=== PATIENT | male | born 1960 | race Two or more races ===

== ENCOUNTER 2019-04-13 01:51 | Emergency (ER) | payer BC ==
[2019-04-13] VITALS (7 sets, daily range): BP systolic 122–147; BP diastolic 75–88
[~2019-04-13] VITALS: Ht 157.5 cm; Wt 56.7 kg
[2019-04-13] MEDS ORDERED: ZOCOR20 MG ORAL (02:15)
--- NOTE | 2019-04-13 02:23 | NUR ---
ED Nurse Note: PT WALKED IN C/O LAC ON POSTERIOR SCALP, PT REPORTS HE FELL WALKING DOWN STAIRS AND HIT HIS HEAD, NOTED LAC WITH DRIED BLOOD, WILL CONT MONITOR. DENIES LOC. PT Aa&OX4, GCS=15, CMS INTACT, DENIES TAKING ANTICOAGULANT MEDS.
--- NOTE | 2019-04-13 02:25 | Emergency Room Report ---
History of Present Illness General Chief Complaint: Multiple Trauma/Fall Source: Patient Present Illness HPI Patient presents with a head injury. He fell on stairs yesterday about 6 or 7 pm. He is not sure what time it was. He denies loss of consciousness. He does not remember falling. There is a cut in the back of his head. It hurts when he is coughing. There was little bleeding when this happened. By putting direct pressure the bleeding was stopped. It's been greater than 10 years since his last tetanus shot. He denies taking blood thinners at this time. The patient rates the pain 4/10. He has taken no medication tonight. He only came in after a friend suggested. No nausea, vomiting. No neck pain. He scraped his right forearm. Pain initially rated 4/10 and throbbing and somewhat sharp in the occiput. Borderline DM. Some polies. He denies any chest pain or palpitations. He denies prior irregular heartbeats. Never with syncope. Last checked by MD 3 months ago. Some anxiety. Scheduled to go to daughter's graduation [facility] in 1 week. 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 Nursing Documentation: PMH: Agreed; PSxH: Agreed Nursing Documentation-PMH Hx Cardiac Problems: Yes - elevated cholesterol Hx Neurological Problems: Yes - arthritis Review of Systems All Other Systems: negative except mentioned in HPI Physical Exam Vital Signs Date Time Temp Pulse Resp B/P (MAP) Pulse Ox O2 Delivery O2 Flow Rate FiO2 04/13/19 02:07 98.1 75 14 144/88 (106) 98 Room Air Sp02 EP Interpretation: reviewed, normal General Appearance: well appearing, no apparent distress, other - GCS 14, not know what happened Head: normocephalic, atraumatic Eyes: left eye other - Pterygium; bilateral eye PERRL, bilateral eye EOMI ENT: hearing grossly normal, normal voice Neck: full range of motion, supple, no bony tend Respiratory: no respiratory distress, speaking full sentences Cardiovascular #1: no edema, other - missed beats Cardiovascular #2: 2+ radial (R) Gastrointestinal: normal inspection, normal bowel sounds, non tender Musculoskeletal: digits/nails normal, gait/station normal, normal range of motion, other - Slight tenderness right forearm Neurologic: alert, oriented x3 - some confusion over what 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 Reason for critical care: Subarachnoid bleed and transfer to higher level care, syncope with arrhythmia Possible complications: hypotension, hypertension, MT, shock, arrhythmias, metabolic acidosis, end organ damage, respiratory failure. Interventions: Laceration repair, multiple calls to [facility], repeat neurologic evaluations Course: Patient presented after fall with head injury. He was uncertain of how he fell. Based on evaluation CT reveals subarachnoid blood. The laceration was repaired. Repeated neurologic exams were done. After the CT scan [facility] was contacted for transfer to higher level of care. His EKG showed frequent PVCs. This required cardiac monitoring of the patient. With treatment the ectopy seemed to improve. Repeat neurologic exam unchanged. I elected not to start the patient on Keppra at this time. Blood pressure was always controlled. Consultations: nursing staff, EMS, [facility] Performed by: Dr. Mayes Tolerated well condition = serious Laceration/Wound Repair Laceration/Wound Repair : Consent: Verbal Wound Location: head Wound's Depth, Shape: into muscle Wound Length (cm): 5 Wound Explored: clean Irrigated w/ Saline (ccs): 30 Betadine Prep?: Yes Anesthesia: Lidocaine w/ Epi Volume Anesthetic (ccs): 20 Wound Debrided: None Wound Repaired With: julián Layer Closure?: No Sterile Dressing Applied?: No - Bacitracin Patient Tolerated: Well Complications: None Medical Decision Making Diagnostic Impression: Primary Impression: Subarachnoid bleed Additional Impressions: Syncope Qualified Codes: R55 - Syncope and collapse Head injury Qualified Codes: S09.90XA - Unspecified injury of head, initial encounter Scalp laceration Qualified Codes: S01.01XA - Laceration without foreign body of scalp, initial encounter Frequent unifocal PVCs ER Course Presents with a scalp laceration after a fall. Differential includes scalp laceration, head bleed, head contusion amongst others. CT the head is indicated , the patient needs tetanus, julián. When pressed, the patient does not remember falling. Consider arrhythmia, AMI, syncope amongst others. Evaluation with EKG, CXR and labs. Needs observation tele. Labs unremarkable. EKG no injury but frequent PVCs. CXR unremarkable. Labs unremarkable. Called by radiology - suspicion of subarachnoid blood. Calling Cedjanna. 4:15 Present to RN Raisa 4:47. Cedars presented to Dr. Weston - Trauma who accepts patient. 5:05. Neuro unchanged. Transfer Cedjanna Weston. Laboratory Tests Test 04/13/19 03:12 04/13/19 03:40 White Blood Count 8.5 K/UL (4.8-10.8) Red Blood Count 5.00 M/UL (4.70-6.10) Hemoglobin 15.1 G/DL (14.2-18.0) Hematocrit 43.5 % (42.0-52.0) Mean Corpuscular Volume 87 FL (80-99) Mean Corpuscular Hemoglobin 30.2 PG (27.0-31.0) Mean Corpuscular Hemoglobin Concent 34.7 G/DL (32.0-36.0) Red Cell Distribution Width 11.4 % (11.6-14.8) L Platelet Count 198 K/UL (150-450) Mean Platelet Volume 7.8 FL (6.5-10.1) Neutrophils (%) (Auto) 53.5 % (45.0-75.0) Lymphocytes (%) (Auto) 34.9 % (20.0-45.0) Monocytes (%) (Auto) 6.3 % (1.0-10.0) Eosinophils (%) (Auto) 4.3 % (0.0-3.0) H Basophils (%) (Auto) 1.0 % (0.0-2.0) Prothrombin Time 10.0 SEC (9.30-11.50) Prothrombin Time INR 0.9 (0.9-1.1) PTT 30 SEC (23-33) Sodium Level 137 MMOL/L (136-145) Potassium Level 3.7 MMOL/L (3.5-5.1) Chloride Level 104 MMOL/L (98-107) Carbon Dioxide Level 22 MMOL/L (21-32) Anion Gap 12 mmol/L (5-15) Blood Urea Nitrogen 22 mg/dL (7-18) H Creatinine 1.0 MG/DL (0.55-1.30) Estimate Glomerular Filtration Rate > 60 mL/min (>60) Glucose Level 142 MG/DL (74-106) H Calcium Level 8.5 MG/DL (8.5-10.1) Total Bilirubin 1.1 MG/DL (0.2-1.0) H Direct Bilirubin 0.2 MG/DL (0.0-0.3) Aspartate Amino Transferase (AST) 28 U/L (15-37) Alanine Aminotransferase (ALT) 31 U/L (12-78) Alkaline Phosphatase 94 U/L (46-116) Total Creatine Kinase 345 U/L (26-308) H Creatine Kinase MB 1.8 NG/ML (0.0-3.6) Creatine Kinase MB Relative Index 0.5 Troponin I 0.000 ng/mL (0.000-0.056) Pro-B-Type Natriuretic Peptide 22 pg/mL (0-125) Total Protein 7.1 G/DL (6.4-8.2) Albumin 4.3 G/DL (3.4-5.0) Globulin 2.8 g/dL Albumin/Globulin Ratio 1.5 (1.0-2.7) Thyroid Stimulating Hormone (TSH) 1.924 uiU/mL (0.358-3.740) Serum Alcohol < 3 mg/dL Urine Opiates Screen Negative (NEGATIVE) Urine Barbiturates Screen Negative (NEGATIVE) Phencyclidine (PCP) Screen Negative (NEGATIVE) Urine Amphetamines Screen Negative (NEGATIVE) Urine Benzodiazepines Screen Negative (NEGATIVE) Urine Cocaine Screen Negative (NEGATIVE) Urine Marijuana (THC) Screen Negative (NEGATIVE) EKG Diagnostic Results Rate: normal Rhythm: other - frequent PVCs ST Segments: no acute changes - no injury Rhythm Strip Diag. Results EP Interpretation: yes Rhythm: NSR, other - frequent PVCs rate 75 Chest X-Ray Diagnostic Results Chest X-Ray Diagnostic Results : Chest X-Ray Ordered: Yes # of Views/Limited/Complete: 1 View Indication: Other EP Interpretation: Yes Interpretation: no consolidation, no effusion, no pneumothorax Impression: No acute disease Electronically Signed by: Electronically signed by Lm Mayes MD CT/MRI/US Diagnostic Results CT/MRI/US Diagnostic Results : Imaging Test Ordered: head Impression IMPRESSION: Subtle findings suspicious for a small amount of acute subarachnoid hemorrhage in the posterior left frontal lobe near the vertex. Last Vital Signs Date Time Temp Pulse Resp B/P (MAP) Pulse Ox O2 Delivery O2 Flow Rate FiO2 04/13/19 07:39 73 16 122/77 99 Room Air 04/13/19 06:09 98.1 Status: improved Disposition: XFER [facility] Condition: Serious Lm Mayes MD Apr 13, 2019 02:25
[2019-04-13] MEDS ORDERED: Bacitracin Oint UD TOPIC ONE (02:30)
[2019-04-13] MEDS ORDERED: Tetanus/Diptheria/Pertussis IM ONE (02:30)
[2019-04-13] MEDS ORDERED: Lidocaine 1% 10mg/ml/Epi 0.005mg/ml 30ml vial INJ ONE (02:30)
--- NOTE | 2019-04-13 03:00 | NUR ---
ED Nurse Note: PT STATED TO MILLIE PT HAD SYNCOPAL EPISODE, PT STATES I DIDN'T WANT TO SAY IT BECAUSE I DIDN'T THINK IT WAS IMPORTANT. SISI DONE BY MILLIE, INTACT, BACITRACIN APPLIED PER ORDER.
--- NOTE | 2019-04-13 03:15 | NUR ---
HAND-OFF: Report given to LILIAN MCNEIL AND [facility]. 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 BLOOD SPECIMEN SENT TO LAB.
--- NOTE | 2019-04-13 03:20 | NUR ---
ED Nurse Note: Got patient from the FT, placed on monitor. AAO x4, VSS at this time, skin is dry, warm to touch.
[2019-04-13 03:28] LABS: EOSINOPHILS % (AUTO) 4.3 % (0.0-3.0); HEMATOCRIT 43.5 % (42.0-52.0); HEMOGLOBIN 15.1 G/DL (14.2-18.0); LYMPHOCYTES % (AUTO) 34.9 % (20.0-45.0); MEAN CORPUSCULAR VOLUME 87 FL (80-99); MONOCYTES % (AUTO) 6.3 % (1.0-10.0); NEUTROPHILS % (AUTO) 53.5 % (45.0-75.0); PLATELET COUNT 198 K/UL (150-450); RED CELL DISTRIBUTION WIDTH 11.4 % (11.6-14.8); WHITE BLOOD COUNT 8.5 K/UL (4.8-10.8)
[2019-04-13 03:31] LABS: ANION GAP 12 mmol/L (5-15); BLOOD UREA NITROGEN 22 mg/dL (7-18); CALCIUM 8.5 MG/DL (8.5-10.1); CARBON DIOXIDE 22 MMOL/L (21-32); CHLORIDE 104 MMOL/L (98-107); POTASSIUM 3.7 MMOL/L (3.5-5.1); SODIUM 137 MMOL/L (136-145)
[2019-04-13 03:32] LABS: INR 0.9 (0.9-1.1)
[2019-04-13 03:46] LABS: ALANINE AMINOTRANSFERASE 31 U/L (12-78); ALBUMIN 4.3 G/DL (3.4-5.0); ALBUMIN/GLOBULIN RATIO 1.5 (1.0-2.7); ALKALINE PHOSPHATASE 94 U/L (46-116); ASPARTATE AMINO TRANSFERASE 28 U/L (15-37); BILIRUBIN,TOTAL 1.1 MG/DL (0.2-1.0); CKMB 1.8 NG/ML (0.0-3.6); CREATINE KINASE 345 U/L (26-308)
[2019-04-13 03:52] LABS: BILIRUBIN,DIRECT 0.2 MG/DL (0.0-0.3)
--- NOTE | 2019-04-13 04:03 | Diagnostic Imaging Report ---
EXAM: XR Chest, 1 View CLINICAL HISTORY: SYNCOPE TECHNIQUE: Frontal view of the chest. COMPARISON: head CT same day FINDINGS: Lungs: Mild hypoventilatory changes at the lung bases. Pleural space: Unremarkable. No pneumothorax. Heart: Unremarkable. No cardiomegaly. Mediastinum: Unremarkable. Bones/joints: Unremarkable. Vasculature: Aortic calcification. IMPRESSION: No acute findings.
--- NOTE | 2019-04-13 04:10 | Diagnostic Imaging Report ---
EXAM: CT Head Without Intravenous Contrast CLINICAL HISTORY: TRAUMA TECHNIQUE: Axial computed tomography images of the head/brain without intravenous contrast. CTDI is 70.53 mGy and DLP is 1319 mGy-cm. One or more of the following dose reduction techniques were used: automated exposure control, adjustment of the mA and/or kV according to patient size, use of iterative reconstruction technique. COMPARISON: none FINDINGS: Brain: Curvilinear density within the sulci of the posterior left frontal lobe best demonstrated on coronal image 28 of series 5 is suspicious for a trace amount of acute subarachnoid hemorrhage. Otherwise no acute intracranial hemorrhage is appreciated. No significant white matter disease. Ventricles: Unremarkable. No ventriculomegaly. Bones/joints: No skull fracture is evident. Soft tissues: There is a stapled laceration in the left occipital region. Sinuses: Unremarkable as visualized. No acute sinusitis. Mastoid air cells: Unremarkable as visualized. No mastoid effusion. IMPRESSION: Subtle findings suspicious for a small amount of acute subarachnoid hemorrhage in the posterior left frontal lobe near the vertex. <MYCVCSECTION> Critical Value Communications 04/13/19 04:14 Call Doctor Regarding Intracranial Hemorrhage, called Dr Mayes on 04/13 04:14 (-07:00) 04/13/19 04:14 Verify Receipt Verified receipt with Dr Mayes on 04/13 04: 14 (-07:00)
--- NOTE | 2019-04-13 04:25 | NUR ---
ED Nurse Note: Patient's CT is done, patient has small amount of acute subarachnoid hemorrhage in the posterior left frontal lobe. Patient will transfere to [facility].
--- NOTE | 2019-04-13 05:20 | NUR ---
ED Nurse Note: Patient is in the bed, AAO x4, VSS at this time, no acute disstress noticed.
--- NOTE | 2019-04-13 07:19 | NUR ---
ED Nurse Note: Tryed to give report, unsuccesfully. LILIAN Childress states call half an hour before transfere patient.
--- NOTE | 2019-04-13 07:21 | NUR ---
HAND-OFF: Report given to LILIAN Maya.
--- NOTE | 2019-04-13 07:40 | NUR ---
ED Nurse Note:pt. sleeping no signs of distress noted, continue monitor
--- NOTE | 2019-04-13 09:07 | NUR ---
ED Nurse Note:called report to CS given to Adrienne QUINTANA, pt. is stable for transfer
--- NOTE | 2019-04-13 09:38 | NUR ---
ED Nurse Note:pt. was picked up by [facility] for transfer to [facility]
--- NOTE | 2019-04-16 16:30 | Cardiology Report ---
APPROVED REPORT EKG Measurement Heart [id number] CO 150P43 [id number] Sinus rhythm with frequent premature ventricular complexes Otherwise normal ECG
== END 2019-04-13 09:40 | disposition short-term general hospital (02) ==
LOC: EMR 02:26
DX: S06.6X9A Traumatic subarachnoid hemorrhage with loss of consciousness of unspecified duration, initial encounter (principal); R55 Syncope and collapse; S09.90XA Unspecified injury of head, initial encounter; S01.01XA Laceration without foreign body of scalp, initial encounter; Z23 Encounter for immunization; W19.XXXA Unspecified fall, initial encounter; Y92.9 Unspecified place or not applicable; F41.9 Anxiety disorder, unspecified; E78.00 Pure hypercholesterolemia, unspecified; M19.90 Unspecified osteoarthritis, unspecified site; S50.811A Abrasion of right forearm, initial encounter
CPT/HCPCS: 12002; 36415; 70450; 71045; 80053; 80307; 82248; 82550; 82553; 83880; 84443; 84484; 85025; 85610; 85730; 90471; 90715; 93005; 96374; 99285; G0480; 80329